=== PATIENT | female | born 1975 | race Caucasian/White ===

== ENCOUNTER 2023-01-04 01:53 | Emergency (ER) | payer MEDICAID ==
[~2023-01-04] VITALS: Ht 170.2 cm; Wt 67.3 kg
[2023-01-04] MEDS ORDERED: IBUPROFEN 600 MG TABLET PO ONE (03:30)
[2023-01-04 03:48] VITALS: BP 102/86
== END 2023-01-04 03:49 | disposition home or self-care (01) ==
LOC: EMS 01:57
DX: R07.89 Other chest pain (principal); F41.9 Anxiety disorder, unspecified; F32.A Depression, unspecified; F17.210 Nicotine dependence, cigarettes, uncomplicated
CPT/HCPCS: 71045; 93005; 99283

== ENCOUNTER 2023-04-07 18:20 | Emergency (ER) | payer MEDICAID ==
[~2023-04-07] VITALS: Ht 170.2 cm; Wt 67.7 kg
[2023-04-07 18:50] VITALS: TEMP 98.1
[2023-04-07] MEDS ORDERED: KETOROLAC TROMETHAMINE 30 MG/ML VIAL IVP ONE (19:15)
[2023-04-07] MEDS ORDERED: SODIUM CHLORIDE 0.9% 1,000 ML IV ONE (19:15)
[2023-04-07] MEDS ORDERED: ONDANSETRON HCL 4 MG/2 ML VIAL IVP ONE (19:15)
[2023-04-07 19:25] LABS: EOSINOPHILS % (AUTO) 2.9 % (1.0-6.0); HEMATOCRIT 35.6 % (36-46); HEMOGLOBIN 12.1 g/dL (12.0-16.0); LYMPHOCYTES # (AUTO) 0.8 K/uL (1.0-4.8); LYMPHOCYTES % (AUTO) 29.3 % (22.0-44.0); MEAN CORPUSCULAR HEMOGLOBIN 31.9 pg (26.0-34.0); MEAN CORPUSCULAR HGB CONC 33.8 G/dL (31.0-37.0); MEAN CORPUSCULAR VOLUME 94 fL (80-100); MONOCYTES # (AUTO) 0.2 K/uL (0.1-1.0); MONOCYTES % (AUTO) 8.8 % (2.0-9.0); NEUTROPHILS # (AUTO) 1.6 K/uL (1.8-7.7); PLATELET COUNT (AUTO) 172 K/uL (150-450); RED BLOOD CELL COUNT(AUTO) 3.78 MIL/uL (4.00-5.20); RED CELL DISTRIBUTION WIDTH 12.5 % (11.5-14.5)
[2023-04-07 19:37] LABS: ANION GAP 6 mmol/L (8-16); CARBON DIOXIDE 28 mmol/L (22-29); CHLORIDE 107 mmol/L (98-107); CREATININE 0.78 mg/dL (0.60-1.30); GLOMERULAR FILTR. RATE CALC > 60 mL/min (>60); GLUCOSE,RANDOM 106 mg/dL (70-110); POTASSIUM 3.5 mmol/L (3.5-5.1); SODIUM SERUM 141 mmol/L (136-145)
[2023-04-07 19:52] LABS: CREATINE KINASE, TOTAL ONLY 78 U/L (26-192)
[2023-04-07 21:28] VITALS: BP 118/72; PULSE 70; RESP 18
== END 2023-04-07 21:30 | disposition home or self-care (01) ==
LOC: EMS 18:21
DX: M79.10 Myalgia, unspecified site (principal); R11.0 Nausea; F15.13 Other stimulant abuse with withdrawal; F41.9 Anxiety disorder, unspecified; F32.A Depression, unspecified; Z91.040 Latex allergy status
CPT/HCPCS: 99284; 96374; 96361; 96375; 80048; 82550; 85025; 36415; J1885; J2405